=== PATIENT | female | born 1995 | race Caucasian/White ===

== ENCOUNTER 2019-08-31 16:54 | Emergency (ER) | payer SELFPAY ==
--- NOTE | 2019-08-31 16:59 | ED_ITS ---
I attest that this documentation has been prepared under the direction and in the presence of Pola Valdez Scribe 08/31/19;17:08 HPI - Skin/Abscess/Foreign Bdy General Chief complaint: Skin/Abscess/Foreign Body Stated complaint: rash on hands Time Seen by Provider: 08/31/19 17:15 Source: patient and RN notes reviewed Mode of arrival: ambulatory Limitations: no limitations History of Present Illness HPI narrative: A 24 y/o female presents to the with a itchy, red, pruritic, rash to her SHANTEL hands for the past 11 days. 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 She reports that she has tried hydrocortisone and triple abx cream but denies either helping. She notes that the only new thing she has been exposed to is bleach. She denies any fevers, vomiting, SOB, and any other medical complaints at this time. MD complaint: rash Onset (ago): day(s) (11) Location: L hand and R hand Quality: pruritic Context: other (bleach) Associated symptoms: itching Treatments prior to arrival: other (hydrocortisone and triple abx cream) Related Data Allergies Allergy/AdvReac Type Severity Reaction Status Date / Time No Known Allergies Allergy Verified 08/31/19 17:09 Review of Systems Review of Systems: Narrative: General/Constitutional: No weight loss,fever Eyes: N0: Redness,discharge Respiratory: Denies: Hemoptysis or SOB Gastrointestinal: No Vomiting, Bleeding-rectal Skin: No Lumps, eruption. Reports a tchy, red, pruritic, rash to her SHANTEL hands. Hematologic: Denies: Petechiae/Purpura PMFSH Past Medical History Medical History (Updated 09/01/19 @ 00:00 by Isabela Chavez) Healthy female Surgical History Surgical History (Updated 08/31/19 @ 17:24 by Pola Dahl) No history of previous surgery Social History Social History (Updated 08/31/19 @ 17:27 by Pola Dahl) Smoking status: Unknown if ever smoked Exam Narrative: Exam Narrative: General Appearance: Well-nourished/obese, normocephalic, Conjunctiva clear Throat/neck: Normal appearing,supple Respiratory: Airway patent, No respiratory distress Musculoskeletal: Moves all extremities, Non tender Skin: Warm, Dry ; pink, raised, maculopapular eruption extensor surface of hands, in a glove distribution Neurological: A&O x3 Normal affect Course Vital Signs Vital signs: Vital Signs Temperature 97.4 F L 08/31/19 17:07 Pulse Rate 72 08/31/19 17:07 Respiratory Rate 08/31/19 17:07 Blood Pressure 122/72 08/31/19 17:07 Pulse Oximetry 100 08/31/19 17:07 Temperature 97.4 F L 08/31/19 17:07 Pulse Rate 72 08/31/19 17:07 Respiratory Rate 08/31/19 17:07 Blood Pressure 122/72 08/31/19 17:07 Pulse Oximetry 100 08/31/19 17:07 Discharge Plan Discharge Clinical Impression: Hand dermatitis Patient Disposition: Home, Self-Care Condition: Stable Additional Instructions: Try using different, permeable gloves; avoid highly concentrated cleaning solutions Prescriptions: New methylprednisolone [Medrol (Suleiman)] 4 mg tablets,dose pack See Rx Instructions .ROUTE .COMPLEX Qty: 21 RF: 0 loratadine [Claritin] 10 mg tablet 10 mg PO DAILY PRN (Reason: allergy symptoms) Qty: 10 RF: 0 Follow-up/Referrals: [facility]
[2019-08-31 17:07] VITALS: BP 122/72; PULSE 72; RESP 20; TEMP 36.3; O2SAT 100
== END 2019-08-31 17:38 | disposition home or self-care (01) ==
PROVIDERS: Emergency Provider Emergency Medicine
DX: L30.9 Dermatitis, unspecified (principal)
CPT/HCPCS: 99203; G0463

== ENCOUNTER 2020-09-11 10:05 | Outpatient (CLI) | payer OTHER, SELFPAY ==
--- NOTE | ~2020-09-11 | US_ITS ---
EXAMINATION: US OB follow up DATE: 09/11/2020 12:47 INDICATION: Third trimester. TECHNIQUE: Real-time ultrasound of the pelvis was performed. COMPARISON: None. FINDINGS: There is a single living fetus in vertex presentation. The placenta is fundal. heart rate is 1 31 beats per minute (bpm). The amniotic fluid index is 5.5 cm, which is low (5th percentile is 8.6 cm ). The following biometric data were obtained: Biparietal diameter (BPD): 8.1 cm; head circumference (HC): 30.6 cm; abdominal circumference (AC): 28 .0 cm; femur length (FL): 6.3 cm. These measurements are concordant. Estimated weight is 1969 g +/- 295 g, which correlates with 57th percentile when 11/07/20 is use d as estimated date of delivery. As single measurements, these parameters are each equal to the following estimated gestational ages: BPD: 32 weeks 3 days. HC: 34 weeks 0 days. AC: 32 weeks 0 days. FL: 32 weeks 4 days. estimated gestational age based solely on measurements from this exam is 32 weeks 5 days +/- 2 weeks 2 days. IMPRESSION: 1. Single living fetus in vertex presentation. 2. Estimated weight is 1969 g +/- 295 g, which correlates with 57th percentile when 11/07/20 is used as estimated date of delivery. 3. Oligohydramnios. Reviewed, dictated and finalized at location A. MANAGER IMPRESSION: 1. Single living fetus in vertex presentation. 2. Estimated weight is 1969 g +/- 295 g, which correlates with 57th perc entile when 11/07/20 is used as estimated date of delivery. 3. Oligohydramnios.
== END 2020-09-11 10:06 | disposition home or self-care (01) ==
LOC: ANHIMG 10:08
PROVIDERS: Visit Provider Obstetrics & Gynecology
DX: Z36.89 Encounter for other specified antenatal screening (principal); O41.03X0 Oligohydramnios, third trimester, not applicable or unspecified; Z3A.00 Weeks of gestation of pregnancy not specified
CPT/HCPCS: 76816

== ENCOUNTER 2020-11-03 14:29 | Outpatient (CLI) | payer OTHER, SELFPAY ==
[2020-11-03] VITALS (8 sets, daily range): BP systolic 129–144; BP diastolic 90–102; PULSE 67–81
[2020-11-03] MEDS: LABETALOL HCL 100 MG TABLET PO (16:41)
[2020-11-03 16:52] LABS: Basophils Percent Auto 0.2 % (0.2-1.2); Eosinophils Absolute Auto 0.1 K/mm3 (0-0.3); Eosinophils Percent Auto 1.4 % (0-4.4); Hematocrit 39.9 % (37.0-47.0); Hemoglobin 12.3 g/dL (12.0-15.0); Immature Granulocyte Absolute 0.04 K/mm3 (0.00-0.031); Immature Granulocyte Percent A 0.5 % (0-0.5); Immature Platelet Fraction Pct 19.1 % (0.9-11.2); Lymphocytes Absolute Auto 1.94 K/mm3 (0.9-3.2); Lymphocytes Percent Auto 22.2 % (18.3-44.2); Mean Corpuscular HGB Conc 30.8 g/dl (32-36); Mean Corpuscular Hemoglobin 25.1 pg (26-34); Mean Corpuscular Volume 81.4 fl (80-100); Monocytes Absolute Auto 0.4 K/mm3 (0.1-0.6); Monocytes Percent Auto 4.9 % (2.6-8.5); Neutrophils Absolute Auto 6.2 K/mm3 (1.3-6.7); Neutrophils Percent Auto 70.8 % (45.5-73.1); Platelet Count Result 187 k/mm3 (150-375); Red Cell Distribution Width 16.8 % (11.5-14.5); White Blood Count 8.7 K/mm3 (4.5-10.0)
[2020-11-03 17:00] LABS: Alanine Aminotransferase 30 U/L (4-35); Albumin Level 3.6 g/dL (3.5-5.1); Alkaline Phosphatase 165 U/L (38-126); Anion Gap 5 mmol/L (8-16); Aspartate Amino Transferase 29 U/L (14-36); Bilirubin,Total 0.3 mg/dL (0.2-1.3); Blood Urea Nitrogen 10 mg/dL (7-17); Calcium 9.2 mg/dL (8.4-10.2); Carbon Dioxide 23 mmol/L (22-30); Chloride 108 mmol/L (98-107); Estimated Glomerular Filt Rate > 60; Glucose 88 mg/dL (65-105); Potassium 4.4 mmol/L (3.4-5.0); Sodium 136 mmol/L (137-145); Uric Acid 6.4 mg/dL (2.5-7.5)
[2020-11-03 17:20] LABS: Add Urine Microscopic? YES; Appearance Urine Cloudy (Clear); Bilirubin Urine Negative (Negative); Blood Urine 1+ (Negative); Color Urine Yellow (Yellow); Glucose Urine UA Negative (Negative); Ketones Urine Negative (Negative); Leukocyte Esterase Ur Trace LEU/UL (NEGATIVE); Mucus Urine Rare /lpf; Nitrate Urine Negative (Negative); Protein Urine 1+ mg/dL (Negative); RBC Urine 0-2 /hpf (0-2); Specific Grav Ur 1.014 (1.001-1.035); Squamous Epithelial Cell Urine Moderate /hpf (Few); Transitional Epi Cells Urine Rare /hpf (None Seen); Urobilinogen Urine Negative mg/dL (<2.0); WBC Urine 0-3 /hpf (0-3)
[2020-11-03 17:25] LABS: Creatinine Urine 109.5 mg/dL; Total Protein Urine Random 22 mg/dL
== END 2020-11-03 18:30 | disposition home or self-care (01) ==
LOC: ANHOBOP 16:16 → ANHLDR 16:18
PROVIDERS: Visit Provider Obstetrics & Gynecology
DX: Z36.89 Encounter for other specified antenatal screening (principal)
CPT/HCPCS: 36415; 59025; 80053; 81001; 82570; 84156; 84550; 85025; 85055; 87086; 87088; 99199; A9270

== ENCOUNTER 2020-11-06 05:54 | Inpatient (IN) | payer OTHER, SELFPAY ==
[2020-11-06] VITALS (227 sets, daily range): BP systolic 82–155; BP diastolic 59–113; PULSE 25–100; RESP 18; TEMP 35.9–36.8; O2SAT 86–100; BMI 47.1
--- NOTE | 2020-11-06 06:21 | WPDANESEPP ---
Anes - Eval Pre Procedure Procedure: labor epidural Date/Time: 11/06/20 06:21 Surgeon: erma neumann Pre Op Diagnosis: Induction of Labor Patient Data Age: 25 Gender: F Height: Weight: Allergies Allergy/AdvReac Type Severity Reaction Status Date / Time nickel Allergy Swelling Verified 10/11/20 12:41 SUGAR Allergy Rash Uncoded 10/11/20 12:41 Home Medications Medication Instructions Recorded Confirmed Type labetalol 100 mg PO Q12H 10/11/20 10/11/20 History prenat.vits,binu,[id number] 1 tablet PO DAILY 10/11/20 10/11/20 History [ #2] Patient hx anesthesia problems: none Family hx anesthesia problems: none PMFSH Past Medical History Medical History (Updated 11/06/20 @ 06:22 by Nelly Hanna CRNA) Anxiety Healthy female Surgical History Surgical History (Updated 08/31/19 @ 17:24 by Pola Dahl) No history of previous surgery Family History Family History (Updated 10/11/20 @ 12:45 by Thelma Dow RN) Mother Heart murmur Depression PTSD (post-traumatic stress disorder) Social History Social History (Updated 08/31/19 @ 17:27 by Pola Dahl) Smoking status: Unknown if ever smoked Substance use: never Spiritual care concerns: No Exam Day of Procedure 11/06/20 06:21
[2020-11-06] MEDS: LACTATED RINGERS 1,000 ML 125 ML IV CONT ×3 (06:39→18:35)
--- NOTE | 2020-11-06 06:52 | PM.IMHP ---
H&P: HPI History of Present Illness Date/Time: whose EDC is 11/07/2020 confirmed by 9 week ultrasound presents for induction of labor. She has chronic hypertension on labetalol 100 mg b.i.d.. The has been otherwise uncomplicated. She is negative for group B strep. Chief Complaint: iol Review of Systems Review of Systems: All systems reviewed & are unremarkable except as noted in HPI and below PMFSH Past Medical History Medical History Anxiety Healthy female Surgical History Surgical History No history of previous surgery Family History Family History Mother Heart murmur Depression PTSD (post-traumatic stress disorder) Social History Social History Smoking status: Unknown if ever smoked Substance use: never Spiritual care concerns: No Meds Home Medications and Allergies Home Medications Medication Instructions Recorded Confirmed Type labetalol 100 mg PO Q12H 10/11/20 10/11/20 History prenat.vits,binu,[id number] 1 tablet PO DAILY 10/11/20 10/11/20 History [ #2] Allergies Allergy/AdvReac Type Severity Reaction Status Date / Time nickel Allergy Swelling Verified 10/11/20 12:41 SUGAR Allergy Rash Uncoded 10/11/20 12:41 Vital Signs Vital Signs - 24 hr 11/06/20 06:30 11/06/20 06:45 Pulse Rate 73 81 Blood Pressure 124/90 122/90 Exam Const: General: no acute distress Eyes: General: appearance normal, both eyes and all related structures Neck: Neck: supple and no JVD Thyroid: thyroid normal Resp: Effort & Inspection: normal respiratory effort Auscultation: clear to auscultation bilaterally Cardio: Rate: regular rate Rhythm: regular rhythm GI: Inspection: non-distended GI Palp: Yes Soft to palpation, No Tenderness to palpation present (GI) and No Guarding due to palpation present (GI) Auscultation: normal bowel sounds : External Female Exam: normal external appearance Speculum Exam - Vagina: normal appearance of the vagina Speculum Exam - Cervix: normal appearance of the cervix ( Cervix 3/75/ -1. AROM clear. FHTs reassuring) Skin: General skin exam: no rashes or lesions noted Extrem: General: normal to inspection and no edema Psych: Mental Status: mental status grossly normal Affect: normal affect Assessment and Plan Additional Plan impression: Term with chronic hypertension and favorable cervix Plan: Medical induction of labor. Spontaneous vaginal delivery is expected. She has an epidural candidate
--- NOTE | 2020-11-06 06:53 | LDADM ---
This patient, Arianna Mercedes, was admitted to Labor/Delivery/Recovery 107 on 11/06/20 at 05:54. Plans for labor, pain management and were discussed with patient. Patient/family oriented to hospital policies and general routines including ID bracelet, bed and alarms, visiting hours, pain management, procedures, bathroom and other care routines, personal items, smoking policy, room service/diet and guest tray routines, infant security routines, and visiting hours. Patient/Family are encouraged to report perceived risks to care and to ask questions if they do not understand what they are told or what they should do. See OBIX for further documentation.
[2020-11-06] MEDS: OXYTOCIN 30 UNITS/NS 500 ML 30 UNITS/500 ML BAG 6 UNITS IV CONT (07:01)
[2020-11-06 07:02] LABS: Alanine Aminotransferase 31 U/L (4-35); Albumin Level 3.6 g/dL (3.5-5.1); Alkaline Phosphatase 166 U/L (38-126); Anion Gap 8 mmol/L (8-16); Aspartate Amino Transferase 31 U/L (14-36); Bilirubin,Total 0.5 mg/dL (0.2-1.3); Blood Urea Nitrogen 9 mg/dL (7-17); Calcium 9.1 mg/dL (8.4-10.2); Carbon Dioxide 19 mmol/L (22-30); Chloride 109 mmol/L (98-107); Estimated Glomerular Filt Rate > 60; Glucose 96 mg/dL (65-105); Potassium 4.1 mmol/L (3.4-5.0); Sodium 136 mmol/L (137-145); Uric Acid 5.6 mg/dL (2.5-7.5)
[2020-11-06 07:11] LABS: Basophils Percent Auto 0.2 % (0.2-1.2); Eosinophils Absolute Auto 0.1 K/mm3 (0-0.3); Eosinophils Percent Auto 1.4 % (0-4.4); Hematocrit 37.8 % (37.0-47.0); Hemoglobin 11.6 g/dL (12.0-15.0); Immature Granulocyte Absolute 0.04 K/mm3 (0.00-0.031); Immature Granulocyte Percent A 0.4 % (0-0.5); Immature Platelet Fraction Pct 20.8 % (0.9-11.2); Lymphocytes Absolute Auto 2.01 K/mm3 (0.9-3.2); Lymphocytes Percent Auto 21.8 % (18.3-44.2); Mean Corpuscular HGB Conc 30.7 g/dl (32-36); Mean Corpuscular Hemoglobin 24.9 pg (26-34); Mean Corpuscular Volume 81.3 fl (80-100); Monocytes Absolute Auto 0.5 K/mm3 (0.1-0.6); Monocytes Percent Auto 5.2 % (2.6-8.5); Neutrophils Absolute Auto 6.6 K/mm3 (1.3-6.7); Platelet Count Result 172 k/mm3 (150-375); Red Blood Count 4.65 M/mm3 (4.2-5.4); White Blood Count 9.2 K/mm3 (4.5-10.0)
--- NOTE | 2020-11-06 08:41 | WPDANESEPP ---
Anes - Eval Pre Procedure Procedure: Labor Epidural Date/Time: 11/06/20 08:41 Pre Op Diagnosis: Induction of Labor Patient Data Age: 25 Gender: F Height: 1.63 m Weight: 124.6 kg Last Vital Signs Temp 36.1 C L 11/06/20 06:52 Pulse 76 11/06/20 08:30 BP 155/113 H 11/06/20 08:30 Allergies Allergy/AdvReac Type Severity Reaction Status Date / Time nickel Allergy Swelling Verified 10/11/20 12:41 SUGAR Allergy Rash Uncoded 10/11/20 12:41 Home Medications Medication Instructions Recorded Confirmed Type labetalol 100 mg PO Q12H 10/11/20 10/11/20 History prenat.vits,binu,mda-qhug-[id number] 1 tablet PO DAILY 10/11/20 10/11/20 History [ #2] ondansetron HCl 4 mg PO Q6H PRN 11/06/20 11/06/20 History Laboratory Tests 11/06/20 11/06/20 11/06/20 06:44 06:44 06:44 WBC 9.2 K/mm3 K/mm3 (4.5-10.0) RBC 4.65 M/mm3 M/mm3 (4.2-5.4) Hgb 11.6 g/dL L g/dL (12.0-15.0) Hct 37.8 % % (37.0-47.0) MCV 81.3 fl fl (80-100) MCH 24.9 pg L pg (26-34) MCHC 30.7 g/dl L g/dl (32-36) RDW 17.0 % H % (11.5-14.5) Plt Count 172 k/mm3 k/mm3 (150-375) MPV TNP Immature Gran % (Auto) 0.4 % % (0-0.5) Neut % (Auto) 71.0 % % (45.5-73.1) Lymph % (Auto) 21.8 % % (18.3-44.2) Emanuel % (Auto) 5.2 % % (2.6-8.5) Eos % (Auto) 1.4 % % (0-4.4) Baso % (Auto) 0.2 % % (0.2-1.2) Lymph # (Auto) 2.01 K/mm3 K/mm3 (0.9-3.2) Emanuel # (Auto) 0.5 K/mm3 K/mm3 (0.1-0.6) Eos # (Auto) 0.1 K/mm3 K/mm3 (0-0.3) Baso # (Auto) 0.0 K/mm3 K/mm3 (0.0-0.1) Abs Immat Gran (auto) 0.04 K/mm3 H K/mm3 (0.00-0.031) Absolute Neuts (auto) 6.6 K/mm3 K/mm3 (1.3-6.7) Absolute Nucleated RBC 0.0 K/mm3 K/mm3 (0.0-0.012) Nucleated RBC % 0.0 % % (0.0-0.2) % Immature Plt Fraction 20.8 % H % (0.9-11.2) Sodium Potassium Chloride Carbon Dioxide Anion Gap BUN Creatinine Estim Creat Clear Calc Estimated GFR Glucose Uric Acid Cancelled Calcium Total Bilirubin AST ALT Alkaline Phosphatase Total Protein Albumin RPR Pending Blood Type Antibody Screen 11/06/20 11/06/20 06:44 06:44 WBC RBC Hgb Hct MCV MCH MCHC RDW Plt Count MPV Immature Gran % (Auto) Neut % (Auto) Lymph % (Auto) Emanuel % (Auto) Eos % (Auto) Baso % (Auto) Lymph # (Auto) Emanuel # (Auto) Eos # (Auto) Baso # (Auto) Abs Immat Gran (auto) Absolute Neuts (auto) Absolute Nucleated RBC Nucleated RBC % % Immature Plt Fraction Sodium 136 mmol/L L mmol/L (137-145) Potassium 4.1 mmol/L mmol/L (3.4-5.0) Chloride 109 mmol/L H mmol/L (98-107) Carbon Dioxide 19 mmol/L L mmol/L (22-30) Anion Gap 8 mmol/L mmol/L (8-16) BUN 9 mg/dL mg/dL (7-17) Creatinine 0.70 mg/dL mg/dL (0.7-1.0) Estim Creat Clear Calc Not Reportable Estimated GFR > 60 (59 - ) Glucose 96 mg/dL mg/dL (65-105) Uric Acid 5.6 mg/dL mg/dL (2.5-7.5) Calcium 9.1 mg/dL mg/dL (8.4-10.2) Total Bilirubin 0.5 mg/dL mg/dL (0.2-1.3) AST 31 U/L U/L (14-36) ALT 31 U/L U/L (4-35) Alkaline Phosphatase 166 U/L H U/L (38-126) Total Protein 7.0 g/dL g/dL (6.3-8.2) Albumin 3.6 g/dL g/dL (3.5-5.1) RPR Blood Type A Positive Antibody Screen Negati
--- NOTE | 2020-11-06 11:26 | PM.OBPNVD ---
OB - PN: Subj Subjective Date/time seen: 11/06/20 11:26 cx 4 by rn exam fhts ok OB - PN: Obj Data Labs CBC & Chem 7: 11/06/20 06:44 11/06/20 06:44 Labs: Laboratory Results - last 24 hr 11/06/20 11/06/20 11/06/20 06:44 06:44 06:44 WBC 9.2 RBC 4.65 Hgb 11.6 L Hct 37.8 MCV 81.3 MCH 24.9 L MCHC 30.7 L RDW 17.0 H Plt Count 172 MPV TNP Immature Gran % (Auto) 0.4 Neut % (Auto) 71.0 Lymph % (Auto) 21.8 Greene % (Auto) 5.2 Eos % (Auto) 1.4 Baso % (Auto) 0.2 Lymph # (Auto) 2.01 Greene # (Auto) 0.5 Eos # (Auto) 0.1 Baso # (Auto) 0.0 Abs Immat Gran (auto) 0.04 H Absolute Neuts (auto) 6.6 Absolute Nucleated RBC 0.0 Nucleated RBC % 0.0 % Immature Plt Fraction 20.8 H Sodium Potassium Chloride Carbon Dioxide Anion Gap BUN Creatinine Estim Creat Clear Calc Estimated GFR Glucose Uric Acid Cancelled Calcium Total Bilirubin AST ALT Alkaline Phosphatase Total Protein Albumin Blood Type A Positive Antibody Screen Negative 11/06/20 06:44 WBC RBC Hgb Hct MCV MCH MCHC RDW Plt Count MPV Immature Gran % (Auto) Neut % (Auto) Lymph % (Auto) Greene % (Auto) Eos % (Auto) Baso % (Auto) Lymph # (Auto) Greene # (Auto) Eos # (Auto) Baso # (Auto) Abs Immat Gran (auto) Absolute Neuts (auto) Absolute Nucleated RBC Nucleated RBC % % Immature Plt Fraction Sodium 136 L Potassium 4.1 Chloride 109 H Carbon Dioxide 19 L Anion Gap 8 BUN 9 Creatinine 0.70 Estim Creat Clear Calc Not Reportable Estimated GFR > 60 Glucose 96 Uric Acid 5.6 Calcium 9.1 Total Bilirubin 0.5 AST 31 ALT 31 Alkaline Phosphatase 166 H Total Protein 7.0 Albumin 3.6 Blood Type Antibody Screen OB - PN A/P Time Spent With Patient Time: Total time spent is greater than 50% in coordination of care (as documented) at patient's floor/unit and/or counseling patient:
--- NOTE | 2020-11-06 17:52 | P.PNOB_ITS ---
OB - PN: Subj Subjective Date/time seen: 11/06/20 17:52 cx 7 by rn exam iupc in/adjusting pit fhts ok OB - PN: Obj Data Labs CBC & Chem 7: 11/06/20 06:44 11/06/20 06:44 Labs: Laboratory Results - last 24 hr 11/06/20 11/06/20 11/06/20 06:44 06:44 06:44 WBC 9.2 RBC 4.65 Hgb 11.6 L Hct 37.8 MCV 81.3 MCH 24.9 L MCHC 30.7 L RDW 17.0 H Plt Count 172 MPV TNP Immature Gran % (Auto) 0.4 Neut % (Auto) 71.0 Lymph % (Auto) 21.8 Meriwether % (Auto) 5.2 Eos % (Auto) 1.4 Baso % (Auto) 0.2 Lymph # (Auto) 2.01 [place]ether # (Auto) 0.5 Eos # (Auto) 0.1 Baso # (Auto) 0.0 Abs Immat Gran (auto) 0.04 H Absolute Neuts (auto) 6.6 Absolute Nucleated RBC 0.0 Nucleated RBC % 0.0 % Immature Plt Fraction 20.8 H Sodium Potassium Chloride Carbon Dioxide Anion Gap BUN Creatinine Estim Creat Clear Calc Estimated GFR Glucose Uric Acid Cancelled Calcium Total Bilirubin AST ALT Alkaline Phosphatase Total Protein Albumin Blood Type A Positive Antibody Screen Negative 11/06/20 06:44 WBC RBC Hgb Hct MCV MCH MCHC RDW Plt Count MPV Immature Gran % (Auto) Neut % (Auto) Lymph % (Auto) [place]ether % (Auto) Eos % (Auto) Baso % (Auto) Lymph # (Auto) Meriwether # (Auto) Eos # (Auto) Baso # (Auto) Abs Immat Gran (auto) Absolute Neuts (auto) Absolute Nucleated RBC Nucleated RBC % % Immature Plt Fraction Sodium 136 L Potassium 4.1 Chloride 109 H Carbon Dioxide 19 L Anion Gap 8 BUN 9 Creatinine 0.70 Estim Creat Clear Calc Not Reportable Estimated GFR > 60 Glucose 96 Uric Acid 5.6 Calcium 9.1 Total Bilirubin 0.5 AST 31 ALT 31 Alkaline Phosphatase 166 H Total Protein 7.0 Albumin 3.6 Blood Type Antibody Screen OB - PN A/P Time Spent With Patient Time: Total time spent is greater than 50% in coordination of care (as documented) at patient's floor/unit and/or counseling patient:
[2020-11-07] VITALS (161 sets, daily range): BP systolic 101–158; BP diastolic 54–99; PULSE 65–120; RESP 18; TEMP 36.4–37.2; O2SAT 91–100
[2020-11-07] MEDS: SODIUM CHLORIDE 0.9% IV 300 ML 600 ML I-UTERINE (00:01)
[2020-11-07] MEDS: OXYTOCIN 30 UNITS/NS 500 ML 30 UNITS/500 ML BAG 6 UNITS IV CONT ×2 (00:10→09:43)
[2020-11-07] MEDS: AMPICILLIN 2 GM/NS 100 ML 2 GM/100 ML BAG IVPB (00:57)
[2020-11-07] MEDS: LACTATED RINGERS 1,000 ML 125 ML IV CONT (03:11)
[2020-11-07] MEDS: AMPICILLIN 1 GM/NS 50 ML 1 GM/50 ML BAG IVPB (04:54)
--- NOTE | 2020-11-07 07:43 | PM.OBPNVD ---
OB - PN: Subj Subjective Date/time seen: 11/07/20 07:43 complete/pushing fhts ok OB - PN: Obj Data Labs CBC & Chem 7: 11/06/20 06:44 11/06/20 06:44 Labs: Laboratory Results - last 24 hr 11/06/20 06:44 Blood Type A Positive Antibody Screen Negative OB - PN A/P Time Spent With Patient Time: Total time spent is greater than 50% in coordination of care (as documented) at patient's floor/unit and/or counseling patient:
--- NOTE | 2020-11-07 09:25 | PM.OBPRVD ---
OB - Delivery Note Procedure Delivery date: 11/07/20 Intrapartal events: None Induction method: AROM Delivery augmentation: pitocin Delivery monitor: external FHT Episiotomy description: None Laceration Description: None Specimen: No Quantitative Blood Loss (ml): 58 Anesthesia type: Epidural Disposition: floor Baby Date of : 11/07/20 Time of : 09:17 Weeks of gestation at delivery: 39 Infant gender: Male presentation: vertex position: Right Occiput Anterior Placenta delivery description: Spontaneous cord vessel description: 3 Vessels and Nuchal Cord
[2020-11-07] MEDS: OXYTOCIN 30 UNITS/NS 500 ML 30 UNITS/500 ML BAG 125 UNITS IV CONT (10:12)
[2020-11-07] MEDS: IBUPROFEN 600 MG TABLET PO (11:21)
[2020-11-07 13:25] LABS: Rapid Plasma Reagin Non-Reactive (NonReactive)
--- NOTE | 2020-11-07 15:15 | PC.NURSE ---
Consult with pt. to discuss initiation of pumping due to transfer. Mother states she was planing on . Reviewed stimulation and milk supply. Breast pump provided due to transfer. Instructions given on breast pump care and usage, pumping schedule, nipple care, and collection and storage of breast milk. Encouraged breast massage and manual expression to stimulate supply. Assessed patient for correct flange size, placement and draw. Patient verbalizes and demonstrates understanding of instructions.
[2020-11-08] VITALS: BP 119/78; PULSE 67; RESP 16; TEMP 36.7
[2020-11-08 04:30] VITALS: BP 141/100; PULSE 72; RESP 16; TEMP 36.6
[2020-11-08 06:05] LABS: Hematocrit 33.2 % (37.0-47.0); Hemoglobin 10.1 g/dL (12.0-15.0)
--- NOTE | 2020-11-08 07:43 | PM.OBPNVD ---
OB - PN: Subj Subjective Date/time seen: 11/08/20 07:43 Patient comments: no complaints and pain well controlled OB - PN: Obj Data Labs CBC & Chem 7: 11/08/20 04:56 11/06/20 06:44 Labs: Laboratory Results - last 24 hr 11/06/20 11/08/20 06:44 04:56 Hgb 10.1 L Hct 33.2 L RPR Non-reactive OB - PN A/P Plan day: 1 Plan: routine care, discharge home and follow up 6 weeks Time Spent With Patient Time: Total time spent is greater than 50% in coordination of care (as documented) at patient's floor/unit and/or counseling patient: Time with patient: less than 15 minutes Review of Systems Review of Systems: All systems reviewed & are unremarkable except as noted in HPI and below Exam Const: General: no acute distress Eyes: General: appearance normal, both eyes and all related structures Neck: Neck: supple and no JVD Thyroid: thyroid normal Resp: Effort & Inspection: normal respiratory effort Auscultation: clear to auscultation bilaterally Cardio: Rate: regular rate Rhythm: regular rhythm GI: Inspection: non-distended GI Palp: Yes Soft to palpation, No Tenderness to palpation present (GI) and No Guarding due to palpation present (GI) Auscultation: normal bowel sounds : General: Yes bladder normal to palpation External Female Exam: normal external appearance Speculum Exam - Vagina: normal vaginal discharge and No vaginal bleeding Speculum Exam - Cervix: nontender Bimanual exam- vagina & uterus: bladder normal to palpation and No Cervical tenderness present OB/external & speculum: No vaginal bleeding Skin: General skin exam: no rashes or lesions noted Extrem: General: normal to inspection and no edema Psych: Mental Status: mental status grossly normal Affect: normal affect
--- NOTE | 2020-11-08 07:43 | PM.DS ---
DS: Admitting Diagnosis Admitting Diagnosis Admitting Diagnosis: term gest htn DS: Summary Hospital Course Hospital Course: mil x 24 hrs. baby transferrred with mec aspiration. her course unremarkable Time Spent with Patient Time attestation: Total time spent providing and/or coordinating discharge services: Exam Const: General: no acute distress Eyes: General: appearance normal, both eyes and all related structures Neck: Neck: supple and no JVD Thyroid: thyroid normal Resp: Effort & Inspection: normal respiratory effort Auscultation: clear to auscultation bilaterally Cardio: Rate: regular rate Rhythm: regular rhythm GI: Inspection: non-distended GI Palp: Yes Soft to palpation, No Tenderness to palpation present (GI) and No Guarding due to palpation present (GI) Auscultation: normal bowel sounds : General: Yes bladder normal to palpation External Female Exam: normal external appearance Speculum Exam - Vagina: normal vaginal discharge and No vaginal bleeding Speculum Exam - Cervix: nontender Bimanual exam- vagina & uterus: bladder normal to palpation and No Cervical tenderness present OB/external & speculum: No vaginal bleeding Skin: General skin exam: no rashes or lesions noted Extrem: General: normal to inspection and no edema Psych: Mental Status: mental status grossly normal Affect: normal affect DS: Data Data Completed and Pending Labs on day of discharge: Labs from last 24 hours 11/08/20 11/06/20 04:56 06:44 Hgb 10.1 L Hct 33.2 L RPR Non-reactive Discharge Plan Discharge Attending physician on discharge: Aidan Sandra Consulting providers: John Turpin Jr. Discharging Clinician: Aidan Sandra Patient Disposition: Home, Self-Care Activity: may shower, no straining and pelvic rest Diet: heart healthy Wound Care Instructions: follow printed instructions Discharge Instructions: Education: Mom and Baby Guide Given to: Mother Follow-Up: Call your delivering provider's office for an appointment to be seen in: 6 Weeks BREAST CARE: * Wear a snug supportive bra. * For engorgement discomfort: Breast Feeding: * Apply warm moist washcloths * Express milk as needed to relieve engorgement * Wear loose clothing Bottle Feeding: * May apply ice packs * For sore nipples: * Identify correct latch-on * Apply warm moist washcloths before and after nursing * Air dry nipples after nursing * May apply Lansinoh cream to nipples EPISIOTOMY/PERINEAL CARE: * Until bleeding stops, use your anoop bottle after urinating * Change your pad frequently throughout the day * You may take sitz baths several times a day (fill your bathtub with warm water and soak for 20 minutes.) Do NOT bathe in the water * No tub baths until seen by your physician - You may shower ACTIVITY: * Rest as much as possible. * Do not exercise or lift anything heavier than 10 pounds for about 2 weeks * Avoid stairs or driving as much as possible. * Do not put anything into the vagina. No douching, tampons, or sexual activity until seen by physician. NOTIFY PHYSICIAN IF YOU HAVE ANY QUESTIONS OR IF ANY OF THE FOLLOWING SYMPTOMS OCCUR: * If your vaginal area becomes red, swollen, or more painful than what you have experienced in the hospital. * If your vaginal bleeding becomes foul smelling. * If your vaginal bleeding becomes more heavy than a period or if your bleeding changes from pink to bright red. However, you may pass an occasional walnut-sized clot once or twice for the first week . * If you experience a sharp, shooting pain in your calves. * If you discover a hard, reddened area on your breast or if you experience flu-like symptoms. DIET: * Eat regular, well-balanced meals. * Drink plenty of fluids daily. If , drink to thirst. Patient Instructions: An
[2020-11-08 08:05] VITALS: BP 141/81; PULSE 77; RESP 16; TEMP 36.2; O2SAT 97
--- NOTE | 2020-11-08 08:56 | WPDANLDPN2 ---
Anes-Prog Note L&D Date/Time: 11/08/20 08:56 Comfortable throughout: labor Neuraxial method: epidural Epidural/Spinal procedure site: clean & non-tender Neuro status: Neuro function grossly intact. Cardiovascular status: normal Respiratory status: normal Airway patency: baseline Mental status: baseline Post-Op hydration status: normal Vital Signs: Last Vital Signs Temp 36.6 C 11/08/20 04:30 Pulse 72 11/08/20 04:30 Resp 16 11/08/20 04:30 BP 141/100 H 11/08/20 04:30 Pulse Ox 98 11/07/20 16:04 Pain score (VAS): no c/o pain Post-procedural complaints: none Patient feedback: Patient satisfied with anesthetic care.
[2020-11-08] MEDS: DOCUSATE SODIUM 100 MG CAPSULE PO (09:11)
[2020-11-08] MEDS: IBUPROFEN 600 MG TABLET PO (09:11)
[2020-11-08 09:45] VITALS: PULSE 77; RESP 16; O2SAT 97
== END 2020-11-08 10:15 | disposition home or self-care (01) | DRG 560 ==
LOC: ANHLDR 06:00 → ANHOB2 11-07 12:16
PROVIDERS: Admitting Provider Obstetrics & Gynecology; Visit Provider Obstetrics & Gynecology
DX: O13.4 Gestational [pregnancy-induced] hypertension without significant proteinuria, complicating childbirth (principal); Z37.0 Single live birth; Z3A.40 40 weeks gestation of pregnancy; O36.8330 Maternal care for abnormalities of the fetal heart rate or rhythm, third trimester, not applicable or unspecified; O77.0 Labor and delivery complicated by meconium in amniotic fluid; O99.344 Other mental disorders complicating childbirth; F41.9 Anxiety disorder, unspecified; O99.214 Obesity complicating childbirth; E66.01 Morbid (severe) obesity due to excess calories; O69.81X0 Labor and delivery complicated by cord around neck, without compression, not applicable or unspecified; O42.92 Full-term premature rupture of membranes, unspecified as to length of time between rupture and onset of labor
CPT/HCPCS: 36415; 80053; 84550; 85014; 85018; 85025; 85055; 86592; 86850; 86900; 86901; A9270; J0290; J2590; J2795; J7030; J7120

== ENCOUNTER 2021-07-20 17:32 | Emergency (ER) | payer OTHER, SELFPAY ==
[2021-07-20 17:35] VITALS: BP 131/78; PULSE 98; RESP 18; TEMP 36.9; O2SAT 100
--- NOTE | 2021-07-20 19:09 | ED.DENTAL ---
HPI - Dental/Oral General Chief complaint: Dental/Oral Stated complaint: dental pain Time Seen by Provider: 07/20/21 18:51 History of Present Illness HPI Narrative: 26-year-old female presenting to the emergency department for evaluation of dental pain. Patient states over the last year she has had recurring dental pain. Patient states over the last 3 days the pain has become more frequent. Patient has been taking Tylenol and ibuprofen for this. Patient states p.o. is limited due to the level of pain. Patient did attempt to have follow-up with a dentist but was unable to afford the initial visit. Patient states she does have a return dental visit scheduled for Friday. Related Data Home Medications Medication Instructions Recorded Confirmed labetalol 100 mg PO Q12H 10/11/20 10/11/20 prenat.vits,binu,bob-ylzw-hwdup 1 tablet PO DAILY 10/11/20 10/11/20 ondansetron HCl 4 mg PO Q6H PRN 11/06/20 11/06/20 Allergies Allergy/AdvReac Type Severity Reaction Status Date / Time nickel Allergy Swelling Verified 07/20/21 19:34 SUGAR Allergy Rash Uncoded 10/11/20 12:41 Review of Systems Review of Systems: CONSTITUTIONAL: Denies fever, chills, or sweats. EYES: Denies visual changes, redness, or discharge. ENT: Denies rhinorrhea, congestion, sore throat, or otalgia. Left lower dental pain CARDIOVASCULAR: Denies chest pain, palpitations, or edema. RESPIRATORY: Denies cough or dyspnea. GASTROINTESTINAL: Denies abdominal pain, nausea, vomiting, or diarrhea. GENITOURINARY: Denies dysuria or hematuria. SKIN: Denies rash or itching. MUSCULOSKELETAL: Denies back pain, joint pain, or myalgia. NEUROLOGIC: Denies headache, numbness, or weakness. PSYCHIATRIC: Denies anxiety or depression. [facility] Past Medical History Medical History (Updated 07/20/21 @ 19:14 by Brady Cordoba MD) Anxiety Healthy female HTN in , chronic PTSD (post-traumatic stress disorder) Super obesity Surgical History Surgical History No history of previous surgery Family History Family History Mother Heart murmur Depression PTSD (post-traumatic stress disorder) Social History Social History Smoking status: Never smoker Substance use: never Spiritual care concerns: No Exam Narrative: APPEARANCE: Well appearing, no pain in distress, well-nourished. HEAD: normocephalic, atraumatic. EYES: PERRLA/EOMI, conjunctivae clear. NOSE: Normal no drainage THROAT: Pharynx clear, no exudate. Dental carry, no dental fracture, no trismus. Normal posterior pharynx NECK: Supple. No adenopathy, no masses. RESPIRATORY: Airway patent, respirations nonlabored. Clear to auscultation bilaterally, no rales, rhonchi, wheezing. CARDIOVASCULAR: Regular rate and rhythm without murmurs rubs or gallops. ABDOMINAL: Soft, nontender, nondistended, normal bowel sounds MUSCULOSKELETAL: Moves all extremities. Strength/ROM intact, No edema, No calf tenderness. NEURO: Alert. Cranial nerves II through XII intact. Good gait. Good coordination SKIN: Warm, dry. Normal Color PSYCHIATRIC: Normal affect/mood. Course Course Emergency Course: 26-year-old female presented to emergency department for evaluation of dental pain. Patient was started on antibiotics in the emergency department. Patient states that she does have follow-up with her dentist as scheduled for Friday. All questions and concerns were addressed. Physician was discharged to home Clinical impression was dental caries/dental pain Patient condition was stable at time of discharge from the emergency department. Vital Signs Vital signs: Vital Signs Temperature 98.5 F 07/20/21 17:35 Pulse Rate 98 07/20/21 17:35 Respiratory Rate 18 07/20/21 17:35 Blood Pressure 131/78 07/20/21 17:35 Pulse Oximetry 100 07/20/21 17:35
[2021-07-20] MEDS: AMOXICILLIN/CLAVULANATE K 875-125 MG TAB 1 TABLET PO (19:35)
[2021-07-20 19:43] VITALS: BP 127/75; PULSE 88; RESP 18; O2SAT 100
== END 2021-07-20 19:44 | disposition home or self-care (01) ==
PROVIDERS: Emergency Provider Emergency Medicine
DX: K02.9 Dental caries, unspecified (principal); F41.9 Anxiety disorder, unspecified; I10 Essential (primary) hypertension
CPT/HCPCS: 99283; A9270

== ENCOUNTER 2023-01-08 18:49 | Emergency (ER) | payer OTHER, SELFPAY ==
[2023-01-08 18:57] VITALS: BP 134/85; PULSE 98; RESP 16; TEMP 36; O2SAT 100
--- NOTE | 2023-01-08 19:12 | ED.URI ---
HPI - URI/Sore Throat General Chief Complaint: Upper Respiratory Infection Stated Complaint: Cough,Congestion Time Seen by Provider: 01/08/23 19:04 Source: patient and RN notes reviewed Mode of arrival: ambulatory Limitations: no limitations History of Present Illness HPI Narrative: Patient presents today with a 2 day history of cough, nasal congestion, and sinus pressure. Denies fever, shortness of breath, sore throat. Denies history of asthma. She is a nonsmoker. She has been taking Mucinex without much relief. Related Data Home Medications Medication Instructions Recorded Confirmed No Home Medications 01/08/23 01/08/23 Allergies Allergy/AdvReac Type Severity Reaction Status Date / Time nickel AdvReac Intermediate Swelling Verified 01/08/23 18:54 SUGAR AdvReac Mild Rash Uncoded 01/08/23 18:54 Review of Systems Review of Systems: CONSTITUTIONAL: Denies body aches, fever, chills, or sweats. EYES: Denies visual changes, redness, or discharge. ENT: Denies rhinorrhea, sore throat, or otalgia.+ nasal congestion, sinus pressure CARDIOVASCULAR: Denies chest pain, palpitations, or edema. RESPIRATORY: Denies dyspnea.+ cough GASTROINTESTINAL: Denies abdominal pain, nausea, vomiting, or diarrhea. GENITOURINARY: Denies dysuria or hematuria. SKIN: Denies rash, itching, or wounds. MUSCULOSKELETAL: Denies back pain, joint pain, or myalgia. NEUROLOGIC: Denies headache, numbness, tingling, or weakness. PSYCH: Denies depression or anxiety. [facility] Past Medical History Medical History Anxiety Healthy female HTN in , chronic PTSD (post-traumatic stress disorder) Super obesity Surgical History Surgical History No history of previous surgery Family History Family History Mother Heart murmur Depression PTSD (post-traumatic stress disorder) Social History Social History Smoking status: Never smoker Substance use: never Spiritual care concerns: No Comments At time of signature, I have reviewed and agree with nursing past medical, surgical, social and family history unless otherwise noted. Please see nursing chart for further information. There is no relevant family history pertinent to the presenting complaint Exam Narrative: GENERAL: Well-appearing, well-nourished, and in no acute distress. HEAD: Normocephalic, atraumatic. EYES: EOMI. No redness or drainage. Conjunctivae normal. ENT: Mucous membranes pink and moist. Nares congested. No rhinorrhea. TMs normal bilaterally. Throat normal. Uvula midline. NECK: Normal AROM. Supple. No lymphadenopathy. CHEST: No respiratory distress. Clear to auscultation. HEART: Regular rate and rhythm. No murmur appreciated. Normal peripheral pulses. EXTREMITIES: Normal range of motion. No edema. SKIN: Warm, dry, no rash. Capillary refill normal. Normal skin turgor. NEURO: No focal deficits. Alert and oriented x3. Gait steady. PSYCH: Normal affect. No signs of depression or anxiety. Course Course Level of Care: Express Care Visit Vital Signs Vital signs: Vital Signs Temperature 96.8 F L 01/08/23 18:57 Pulse Rate 98 01/08/23 18:57 Respiratory Rate 16 01/08/23 18:57 Blood Pressure 134/85 01/08/23 18:57 Pulse Oximetry 100 01/08/23 18:57 Oxygen Delivery Room Air 01/08/23 18:57 Temperature 96.8 F L 01/08/23 18:57 Pulse Rate 98 01/08/23 18:57 Respiratory Rate 16 01/08/23 18:57 Blood Pressure 134/85 01/08/23 18:57 Pulse Oximetry 100 01/08/23 18:57 Oxygen Delivery Room Air 01/08/23 18:57 Reviewed. Pt has been instructed to follow up with her PCP regarding her elevated blood pressure today. MDM - URI/Sore Throat MDM Narrative Medical decision making narrative:
== END 2023-01-08 19:15 | disposition home or self-care (01) ==
PROVIDERS: Emergency Provider Nurse Practitioner
DX: J06.9 Acute upper respiratory infection, unspecified (principal); E66.01 Morbid (severe) obesity due to excess calories; Z68.42 Body mass index [BMI] 45.0-49.9, adult
CPT/HCPCS: 99213; G0463

== ENCOUNTER 2023-05-06 15:46 | Emergency (ER) | payer OTHER, SELFPAY ==
[2023-05-06 16:03] VITALS: BP 134/85; PULSE 106; RESP 14; TEMP 36.6; O2SAT 100
--- NOTE | 2023-05-06 16:14 | ED.GENADULT ---
HPI - General Adult General Chief complaint: Nausea/Vomiting/Diarrhea Stated complaint: nausea and vomiting - 20 weeks Time Seen by Provider: 05/06/23 17:13 History of Present Illness HPI narrative: Arianna Mercedes is a 28 y/o female who presents wt reports of nausea/vomiting/diarrhea that started yesterday. She states she has been around family wtih the same symptoms, and she felt nauseated yeseterday but was able to keep things down. Today she has vomited multiple times. She is also 20 weeks and saw her OB today. Denies fever/chills/abdominal pain/ vaginal beeding Related Data Allergies Allergy/AdvReac Type Severity Reaction Status Date / Time nickel AdvReac Intermediate Swelling Verified 05/06/23 15:47 SUGAR AdvReac Mild Rash Uncoded 05/06/23 15:47 PMFSH Past Medical History Medical History Anxiety Healthy female HTN in , chronic PTSD (post-traumatic stress disorder) Super obesity Surgical History Surgical History No history of previous surgery Family History Family History Mother Heart murmur Depression PTSD (post-traumatic stress disorder) Social History Social History Smoking status: Never smoker Substance use: never Spiritual care concerns: No Course Vital Signs Vital signs: Vital Signs Temperature 36.6 C 05/06/23 16:03 Pulse Rate 106 H 05/06/23 16:03 Respiratory Rate 14 05/06/23 16:03 Blood Pressure 134/85 05/06/23 16:03 Pulse Oximetry 100 05/06/23 16:03 Oxygen Delivery Room Air 05/06/23 16:03 Temperature 36.6 C 05/06/23 16:03 Pulse Rate 106 H 05/06/23 16:03 Respiratory Rate 14 05/06/23 16:03 Blood Pressure 134/85 05/06/23 16:03 Pulse Oximetry 100 05/06/23 16:03 Oxygen Delivery Room Air 05/06/23 16:03 Medical Decision Making MDM Narrative Medical decision making narrative: This was the MSE note, please see the alternate documentation Vital Signs Vital Signs: Vital Signs Temperature 36.6 C 05/06/23 16:03 Pulse Rate 106 H 05/06/23 16:03 Respiratory Rate 14 05/06/23 16:03 Blood Pressure 134/85 05/06/23 16:03 Pulse Oximetry 100 05/06/23 16:03 Oxygen Delivery Room Air 05/06/23 16:03 Temperature 36.6 C 05/06/23 16:03 Pulse Rate 106 H 05/06/23 16:03 Respiratory Rate 14 05/06/23 16:03 Blood Pressure 134/85 05/06/23 16:03 Pulse Oximetry 100 05/06/23 16:03 Oxygen Delivery Room Air 05/06/23 16:03 Lab Data 05/06/23 16:37 05/06/23 16:37 Labs: Lab Results 05/06/23 Range/Units 16:37 WBC 8.0 (4.5-10.0) K/mm3 RBC 5.07 (4.2-5.4) M/mm3 Hgb 12.8 (12.0-15.0) g/dL Hct 41.9 (37.0-47.0) % MCV 82.6 (80-100) fl MCH 25.2 L (26-34) pg MCHC 30.5 L (32-36) g/dl RDW 16.5 H (11.5-14.5) % Plt Count 183 (150-375) k/mm3 MPV 12.6 H (7.4-10.4) fl Immature Gran % (Auto) 0.3 (0-0.5) % Neut % (Auto) 78.5 H (45.5-73.1) % Lymph % (Auto) 13.2 L (18.3-44.2) % [place] % (Auto) 4.3 (2.6-8.5) % Eos % (Auto) 3.4 (0-4.4) % Baso % (Auto) 0.3 (0.2-1.2) % Lymph # (Auto) 1.05 (0.9-3.2) K/mm3 [place] # (Auto) 0.3 (0.1-0.6) K/mm3 Eos # (Auto) 0.3 (0-0.3) K/mm3 Baso # (Auto) 0.0 (0.0-0.1) K/mm3 Abs Immat Gran (auto) 0.02 (0.00-0.031) K/mm3 Absolute Neuts (auto) 6.3 (1.3-6.7) K/mm3 Absolute Nucleated RBC 0.0 (0.0-0.012) K/mm3 Nucleated RBC % 0.0 (0.0-0.2) % Sodium 133 L (137-145) mmol/L Potassium 3.9 (3.4-5.0) mmol/L Chloride 105 (98-107) mmol/L Carbon Dioxide 17 L (22-30) mmol/L Anion Gap 11 (8-16) mmol/L BUN 5 L (7-17) mg/dL Creatinine 0.40 L (0.7-1.0) mg/dL Estim Creat Clear Calc Not Reportable Estimated GFR > 60 (59 - ) Glucose 89 (65-110) mg/dL Calcium 9.1 (8.
[2023-05-06] MEDS: METOCLOPRAMIDE HCL INJ 10 MG/2 ML VIAL IV PUSH (16:37)
[2023-05-06] MEDS: SODIUM CHLORIDE 0.9% IV 1,000 ML 999 ML IV CONT ×3 (16:37→17:35)
[2023-05-06 16:48] LABS: Basophils Percent Auto 0.3 % (0.2-1.2); Eosinophils Absolute Auto 0.3 K/mm3 (0-0.3); Eosinophils Percent Auto 3.4 % (0-4.4); Hematocrit 41.9 % (37.0-47.0); Hemoglobin 12.8 g/dL (12.0-15.0); Immature Granulocyte Absolute 0.02 K/mm3 (0.00-0.031); Immature Granulocyte Percent A 0.3 % (0-0.5); Lymphocytes Absolute Auto 1.05 K/mm3 (0.9-3.2); Lymphocytes Percent Auto 13.2 % (18.3-44.2); Mean Corpuscular HGB Conc 30.5 g/dl (32-36); Mean Corpuscular Hemoglobin 25.2 pg (26-34); Mean Corpuscular Volume 82.6 fl (80-100); Mean Platelet Volume 12.6 fl (7.4-10.4); Monocytes Absolute Auto 0.3 K/mm3 (0.1-0.6); Monocytes Percent Auto 4.3 % (2.6-8.5); Neutrophils Absolute Auto 6.3 K/mm3 (1.3-6.7); Neutrophils Percent Auto 78.5 % (45.5-73.1); Platelet Count Result 183 k/mm3 (150-375); Red Blood Count 5.07 M/mm3 (4.2-5.4); Red Cell Distribution Width 16.5 % (11.5-14.5)
[2023-05-06 16:57] LABS: Appearance Urine Cloudy (Clear); Bacteria Urine 1+ /hpf; Bilirubin Urine Negative (Negative); Blood Urine Negative (Negative); Color Urine Yellow (Yellow); Glucose Urine UA Negative (Negative); Ketones Urine 2+ mg/dL (Negative); Leukocyte Esterase Ur 1+ LEU/UL (Negative); Nitrate Urine Negative (Negative); Non Pathogenic Casts 0-2; Protein Urine 1+ mg/dL (Negative); RBC Urine 0-2 /hpf (0-2); Specific Grav Ur 1.021 (1.001-1.035); Squamous Epithelial Cell Urine Moderate /hpf (Few); Urobilinogen Urine 0.2 mg/dL (<2.0); WBC Urine 21-50 /hpf; pH Urine 5.5 (5.0-9.0)
[2023-05-06 16:59] LABS: Anion Gap 11 mmol/L (8-16); Blood Urea Nitrogen 5 mg/dL (7-17); Calcium 9.1 mg/dL (8.4-10.2); Carbon Dioxide 17 mmol/L (22-30); Chloride 105 mmol/L (98-107); Estimated Glomerular Filt Rate > 60; Glucose 89 mg/dL (65-110); Potassium 3.9 mmol/L (3.4-5.0); Sodium 133 mmol/L (137-145)
[2023-05-06 17:07] LABS: Add Urine Microscopic? YES
--- NOTE | 2023-05-06 17:14 | ED.NAVMDI ---
HPI - Nausea/Vomiting/Diarrhea General Chief complaint: Nausea/Vomiting/Diarrhea Stated complaint: nausea and vomiting - 20 weeks Time Seen by Provider: 05/06/23 17:13 Source: patient Mode of arrival: ambulatory Limitations: no limitations History of Present Illness HPI Narrative: 28 years old white female, 2, para 1, abortions 0, 20 weeks came to the emergency room because of nausea and vomiting started today. 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 She denies any abdominal pain, vaginal bleeding or discharge. Does not smoke or drink, uses marijuana daily before going to sleep Related Data Allergies Allergy/AdvReac Type Severity Reaction Status Date / Time nickel AdvReac Intermediate Swelling Verified 05/06/23 15:47 SUGAR AdvReac Mild Rash Uncoded 05/06/23 15:47 Review of Systems Review of Systems: All systems reviewed & are unremarkable except as noted in HPI and below PMFSH Past Medical History Medical History Anxiety Healthy female HTN in , chronic PTSD (post-traumatic stress disorder) Super obesity Surgical History Surgical History No history of previous surgery Family History Family History Mother Heart murmur Depression PTSD (post-traumatic stress disorder) Social History Social History Smoking status: Never smoker Substance use: never Spiritual care concerns: No Exam Narrative: General appearance: Well-developed, well-nourished Skin: Normal color Head: Normocephalic, nontraumatic Eyes: Clear conjunctiva ENT: Oropharynx normal, ears normal, nose normal Neck: Supple, nontender Chest and respiratory: Airway patent, no respiratory distress, no accessory muscle use Heart: Regular rate/rhythm Abdomen: Soft, nontender, no organomegaly, quiet bowel sounds Vascular: Normal peripheral pulses, normal capillary refill. Musculoskeletal: Normal range of motion, nontender back Neurologic: Alert and oriented ?3, DIE WELDER is normal as tested, no gross motor deficit Course Reevaluation(s) Reevaluation #1: Remarkable improvement after IV fluid x2 L and Zofran IV. Patient is able to get fluid and crackers down prior to discharge. Date: 05/06/23 Time: 20:10 Vital Signs Vital signs: Vital Signs Temperature 36.6 C 05/06/23 16:03 Pulse Rate 106 H 05/06/23 16:03 Respiratory Rate 14 05/06/23 16:03 Blood Pressure 134/85 05/06/23 16:03 Pulse Oximetry 100 05/06/23 16:03 Oxygen Delivery Room Air 05/06/23 16:03 Temperature 36.6 C 05/06/23 16:03 Pulse Rate 106 H 05/06/23 16:03 Respiratory Rate 14 05/06/23 16:03 Blood Pressure 134/85 05/06/23 16:03 Pulse Oximetry 100 05/06/23 16:03 Oxygen Delivery Room Air 05/06/23 16:03 MDM - Nausea/Vomiting/Diarrhea MDM Narrative Medical decision making narrative: Patient presents with nausea and frequent vomiting. Vital signs on arrival unremarkable except tachycardia at 106 indicating possible dehydration Physical examination as above, Blood work-up today showed unremarkable finding, urine analysis showed 1+ leukocyte Estrace, up to 50 WBC. Urine infection is a possibility which could be coincidental finding with the gastroenteritis. Diagnosis gastroenteritis, urinary tract infection. In the ED patient received 2 L of normal saline, 1 g of ceftriaxone IV, 10 mg of Reglan IV. Patient was able to keep fluids and crackers down prior to discharge. Differential Diagnosis Diff
== END 2023-05-06 19:56 | disposition home or self-care (01) ==
PROVIDERS: Nurse Practitioner Family; Emergency Provider Emergency Medicine
DX: O99.612 Diseases of the digestive system complicating pregnancy, second trimester (principal); K52.9 Noninfective gastroenteritis and colitis, unspecified; O99.212 Obesity complicating pregnancy, second trimester; E66.01 Morbid (severe) obesity due to excess calories; Z3A.20 20 weeks gestation of pregnancy
CPT/HCPCS: 36415; 80048; 81001; 85025; 87086; 87088; 96361; 96365; 96375; 99284; J0696; J2765; J7030

== ENCOUNTER 2023-09-18 06:27 | Inpatient (IN) | payer OTHER, SELFPAY ==
[2023-09-18] VITALS (143 sets, daily range): BP systolic 88–147; BP diastolic 43–104; PULSE 55–240; RESP 18; TEMP 36.4–36.9; O2SAT 95–100; BMI 45.9
--- NOTE | 2023-09-18 06:33 | P.HP_ITS ---
H&P: HPI History of Present Illness Date/Time: 09/18/23 06:33 Chief Complaint: Elevated blood pressure term Narrative: 28-year-old 2 para 1 whose last menstrual period was 12/17/2022, EDC is 09/23/2023, presents at 39 weeks gestation for induction of labor secondary to elevated blood pressures. had been uncomplicated prior. PIH labs will be drawn. She is negative for group B strep PMFSH Past Medical History Medical History Anxiety Healthy female HTN in , chronic PTSD (post-traumatic stress disorder) Super obesity Surgical History Surgical History No history of previous surgery Family History Family History Mother Heart murmur Depression PTSD (post-traumatic stress disorder) Social History Social History Smoking status: Never smoker Substance use: never Spiritual care concerns: No Meds Home Medications and Allergies Home Medications Medication Instructions Recorded Confirmed Type amoxicillin 875 mg tablet 875 mg PO Q12H #20 tabs 05/06/23 Rx ondansetron 4 mg disintegrating 4 mg PO DAILY 3 days #3 tabs 05/06/23 Rx tablet Allergies Allergy/AdvReac Type Severity Reaction Status Date / Time nickel AdvReac Intermediate Swelling Verified 05/06/23 15:47 SUGAR AdvReac Mild Rash Uncoded 05/06/23 15:47 Exam Const: General: cooperative, healthy appearing and comfortable Orientation /consciousness: oriented to person, oriented to place and oriented to time HENMT: Head: normal to inspection Resp: Effort & Inspection: normal respiratory effort Cardio: Rate: regular rate Rhythm: regular rhythm Heart sounds: S1 normal heart sound present and S2 normal heart sound present GI: Inspection: normal to inspection ( gravid soft uterus) : External Female Exam: normal external appearance Speculum Exam - Vagina: normal appearance of the vagina Speculum Exam - Cervix: normal appearance of the cervix ( 50/ FHTs reassuring.) Assessment and Plan Assessment and plan (1) Term : Code(s): Z34.90 - Encounter for supervision of normal , unspecified, unspecified trimester Status: Acute (2) Gestational hypertension: Code(s): O13.9 - Gestational [-induced] hypertension without significant p roteinuria, unspecified trimester Status: Acute Plan medical induction of labor. Spontaneous vaginal delivery is expected. PIH labs will be drawn. She has an epidural candidate
[2023-09-18 07:24] LABS: Basophils Percent Auto 0.2 % (0.2-1.2); Eosinophils Absolute Auto 0.1 K/mm3 (0-0.3); Hematocrit 41.4 % (37.0-47.0); Hemoglobin 12.3 g/dL (12.0-15.0); Immature Granulocyte Absolute 0.03 K/mm3 (0.00-0.031); Immature Granulocyte Percent A 0.3 % (0-0.5); Immature Platelet Fraction Pct 21.8 % (0.9-11.2); Lymphocytes Absolute Auto 2.22 K/mm3 (0.9-3.2); Lymphocytes Percent Auto 19.4 % (18.3-44.2); Mean Corpuscular HGB Conc 29.7 g/dl (32-36); Mean Corpuscular Hemoglobin 23.8 pg (26-34); Mean Corpuscular Volume 80.1 fl (80-100); Monocytes Absolute Auto 0.6 K/mm3 (0.1-0.6); Neutrophils Absolute Auto 8.5 K/mm3 (1.3-6.7); Neutrophils Percent Auto 74.1 % (45.5-73.1); Platelet Count Result 186 k/mm3 (150-375); Red Blood Count 5.17 M/mm3 (4.2-5.4); Red Cell Distribution Width 18.2 % (11.5-14.5); White Blood Count 11.5 K/mm3 (4.5-10.0)
[2023-09-18] MEDS: LACTATED RINGERS 1,000 ML 125 ML IV CONT ×2 (07:31→12:14)
[2023-09-18 07:33] LABS: Alanine Aminotransferase 17 U/L (6-35); Albumin Level 4.3 g/dL (3.5-5.1); Alkaline Phosphatase 167 U/L (38-126); Anion Gap 11 mmol/L (8-16); Aspartate Amino Transferase 26 U/L (14-36); Bilirubin,Total 0.4 mg/dL (0.2-1.3); Blood Urea Nitrogen 16 mg/dL (7-17); Calcium 10.4 mg/dL (8.4-10.2); Carbon Dioxide 18 mmol/L (22-30); Chloride 108 mmol/L (98-107); Estimated Glomerular Filt Rate > 60; Glucose 91 mg/dL (65-110); Potassium 3.9 mmol/L (3.4-5.0); Sodium 137 mmol/L (137-145); Uric Acid 6.4 mg/dL (2.5-7.5)
[2023-09-18] MEDS: OXYTOCIN 30 UNITS/NS 500 ML 30 UNITS/500 ML BAG IV CONT (07:33)
--- NOTE | 2023-09-18 07:40 | LDADM ---
This patient, Arianna Mercedes, was admitted to Labor/Delivery/Recovery 105 on 09/18/23 at 06:27. Plans for labor, pain management and were discussed with patient. Patient/family oriented to hospital policies and general routines including ID bracelet, bed and alarms, visiting hours, pain management, procedures, bathroom and other care routines, personal items, smoking policy, room service/diet and guest tray routines, infant security routines, and visiting hours. Patient/Family are encouraged to report perceived risks to care and to ask questions if they do not understand what they are told or what they should do. See OBIX for further documentation.
[2023-09-18 07:47] LABS: Anisocytosis 1+ (NORMAL); Platelet Estimate Adequate (Adequate); Schistocytes None Seen (NORMAL)
[2023-09-18] MEDS: ONDANSETRON INJ 4 MG/2 ML VIAL IV PUSH (09:08)
--- NOTE | 2023-09-18 11:23 | PM.OBPNLAB ---
Pain Control Date/time seen: 09/18/23 11:23 Pain control: tolerating well Pelvic Exam Dilation (cm): 4 Effacement (%): 80 station: -2 Amniotic membrane status: Leaking Contractions Monitor mode: Internal
[2023-09-18 11:32] LABS: Amphetamine Screen Urine Negative (Negative); Barbiturate Screen Urine Negative (Negative); Benzodiazepines Screen Urine Negative (Negative); Cannabinoid Screen Urine Positive (Negative); Cocaine Screen Urine Negative (Negative); Methadone Screen Urine Negative (Negative); Opiate Screen Urine Negative (Negative); Phencyclidine Screen Urine Negative (Negative)
--- NOTE | 2023-09-18 12:22 | WPDANESEPP ---
Anes - Eval Pre Procedure Procedure: Labor Epidural Date/Time: 09/18/23 12:22 Surgeon: Kathy Preop Diagnosis: Labor Pain Pre Op Diagnosis: IOL Patient Data Age: 28 Gender: F Height: 1.63 m Weight: 121.5 kg Last Vital Signs Temp 36.5 C 09/18/23 11:30 Pulse 72 09/18/23 12:15 BP 127/92 H 09/18/23 12:15 Pulse Ox 99 09/18/23 12:19 Allergies Allergy/AdvReac Type Severity Reaction Status Date / Time nickel AdvReac Intermediate Swelling Verified 05/06/23 15:47 SUGAR AdvReac Mild Rash Uncoded 05/06/23 15:47 Home Medications Medication Instructions Recorded Confirmed Type amoxicillin 875 mg tablet 875 mg PO Q12H #20 tabs 05/06/23 Rx ondansetron 4 mg disintegrating 4 mg PO DAILY 3 days #3 tabs 05/06/23 Rx tablet Laboratory Tests 09/18/23 09/18/23 06:56 10:57 WBC 11.5 H K/mm3 (4.5-10.0) RBC 5.17 M/mm3 (4.2-5.4) Hgb 12.3 g/dL (12.0-15.0) Hct 41.4 % (37.0-47.0) MCV 80.1 fl (80-100) MCH 23.8 L pg (26-34) MCHC 29.7 L g/dl (32-36) RDW 18.2 H % (11.5-14.5) Plt Count 186 k/mm3 (150-375) MPV TNP Immature Gran % (Auto) 0.3 % (0-0.5) Neut % (Auto) 74.1 H % (45.5-73.1) Lymph % (Auto) 19.4 % (18.3-44.2) [place] % (Auto) 5.0 % (2.6-8.5) Eos % (Auto) 1.0 % (0-4.4) Baso % (Auto) 0.2 % (0.2-1.2) Lymph # (Auto) 2.22 K/mm3 (0.9-3.2) [place] # (Auto) 0.6 K/mm3 (0.1-0.6) Eos # (Auto) 0.1 K/mm3 (0-0.3) Baso # (Auto) 0.0 K/mm3 (0.0-0.1) Abs Immat Gran (auto) 0.03 K/mm3 (0.00-0.031) Absolute Neuts (auto) 8.5 H K/mm3 (1.3-6.7) Absolute Nucleated RBC 0.0 K/mm3 (0.0-0.012) Nucleated RBC % 0.0 % (0.0-0.2) Platelet Estimate Adequate (Adequate) % Immature Plt Fraction 21.8 H % (0.9-11.2) Anisocytosis 1+ (NORMAL) Schistocytes None seen (NORMAL) Sodium 137 mmol/L (137-145) Potassium 3.9 mmol/L (3.4-5.0) Chloride 108 H mmol/L (98-107) Carbon Dioxide 18 L mmol/L (22-30) Anion Gap 11 mmol/L (8-16) BUN 16 D mg/dL (7-17) Creatinine 0.60 L mg/dL (0.7-1.0) Estim Creat Clear Calc Not Reportable Estimated GFR > 60 (59 - ) Glucose 91 mg/dL (65-110) Uric Acid 6.4 mg/dL (2.5-7.5) Calcium 10.4 H mg/dL (8.4-10.2) Total Bilirubin 0.4 mg/dL (0.2-1.3) AST 26 U/L (14-36) ALT 17 U/L (6-35) Alkaline Phosphatase 167 H U/L (38-126) Total Protein 8.0 g/dL (6.3-8.2) Albumin 4.3 g/dL (3.5-5.1) Urine Opiates Screen Negative (Negative) Urine Methadone Screen Negative (Negative) Ur Barbiturates Screen Negative (Negative) Ur Phencyclidine Scrn Negative (Negative) Ur Amphetamine Screen Negative (Negative) U Benzodiazepines Scrn Negative (Negative) Urine Cocaine Screen Negative (Negative) U Cannabinoids Screen Positive A (Negative) RPR Pending Blood Type A Positive Antibody Screen Negative : gestational age (AKILAH 09/23/23, ) Patient hx anesthesia problems: none Family hx anesthesia problems: none Results Review: All pre-operative results and documents have been reviewed as part of the pre-operative evaluation. [facility] Past Medical History Medical History Anxiety Healthy female HTN in , chronic PTSD (post-traumatic stress disorder) Super obesity Surgical History Surgical History No history of previous surgery Family History Family History Mother Heart murmur Depression PTSD (post-traumatic stress disorder) Social History
[2023-09-18 15:12] LABS: Rapid Plasma Reagin Non-Reactive (NonReactive)
--- NOTE | 2023-09-18 15:44 | P.PCNOB_ITS ---
OB - Vaginal Delivery Note Procedure Delivery date: 09/18/23 Events: Gestational Hypertension Induction method: AROM Delivery augmentation: Pitocin Delivery monitor: External FHT and Internal Uterine Route of delivery: Episiotomy description: None Laceration Description: None Specimen: No Quantitative Blood Loss (ml): 161 Anesthesia type: Epidural Disposition: Floor Complications: No immediate complications [place] Baby Date of : 09/18/23 Time of : 15:33 Weeks of gestation at delivery: 39 Infant gender: Male presentation: vertex position: Right Occiput Anterior Placenta delivery description: Spontaneous Cord Vessel Description: 3 Vessels score one minute: 9 score five minutes: 9
--- NOTE | 2023-09-18 15:45 | PM.DS ---
DS: Admitting Diagnosis Discharge Date 09/19/2023 Admitting Diagnosis gestationalHypertension DS: Discharge Diagnosis Discharge Diagnosis (1) Gestational hypertension: Code(s): O13.9 - Gestational [-induced] hypertension without significant proteinuria, unspecified trimester Status: Acute (2) Term : Code(s): Z34.90 - Encounter for supervision of normal , unspecified, unspecified trimester Status: Acute DS: Summary Hospital Course Reason for hospitalization: patient was admitted on 09/18/2023 for induction of labor secondary to elevated blood pressures Hospital Course: patient underwent spontaneous vaginal delivery of a male infant which was unremarkable. Her hospital course unremarkable. Remained afebrile. She was up, voiding eating rate, ambulating, generally blood pressures remained stable Time Spent with Patient Time attestation: Total time spent providing and/or coordinating discharge services: DS: Data Data Completed and Pending Labs on day of discharge: Labs from last 24 hours 09/18/23 09/18/23 10:57 06:56 WBC 11.5 H RBC 5.17 Hgb 12.3 Hct 41.4 MCV 80.1 MCH 23.8 L MCHC 29.7 L RDW 18.2 H Plt Count 186 MPV TNP Immature Gran % (Auto) 0.3 Neut % (Auto) 74.1 H Lymph % (Auto) 19.4 [place] % (Auto) 5.0 Eos % (Auto) 1.0 Baso % (Auto) 0.2 Lymph # (Auto) 2.22 [place] # (Auto) 0.6 Eos # (Auto) 0.1 Baso # (Auto) 0.0 Abs Immat Gran (auto) 0.03 Absolute Neuts (auto) 8.5 H Absolute Nucleated RBC 0.0 Nucleated RBC % 0.0 Platelet Estimate Adequate % Immature Plt Fraction 21.8 H Anisocytosis 1+ Schistocytes None seen Sodium 137 Potassium 3.9 Chloride 108 H Carbon Dioxide 18 L Anion Gap 11 BUN 16 D Creatinine 0.60 L Estim Creat Clear Calc Not Reportable Estimated GFR > 60 Glucose 91 Uric Acid 6.4 Calcium 10.4 H Total Bilirubin 0.4 AST 26 ALT 17 Alkaline Phosphatase 167 H Total Protein 8.0 Albumin 4.3 Urine Opiates Screen Negative Urine Methadone Screen Negative Ur Barbiturates Screen Negative Ur Phencyclidine Scrn Negative Ur Amphetamine Screen Negative U Benzodiazepines Scrn Negative Urine Cocaine Screen Negative U Cannabinoids Screen Positive A RPR Non-reactive Blood Type A Positive Antibody Screen Negative Discharge Plan Discharge Attending physician on discharge: Aidan Schultz Discharging Clinician: Aidan Schultz Patient Disposition: Home, Self-Care Activity: may shower, no straining and pelvic rest Diet: heart healthy Wound Care Instructions: follow printed instructions Patient Instructions: Antibiotic Form Stand Alone Forms: General Discharge Information Follow-up/Referrals: Aidan Schultz MD [Physician] - Discharge Medications: Continued ondansetron 4 mg tablet,disintegrating 4 mg PO DAILY 3 Days Qty: 3 0RF amoxicillin 875 mg tablet 875 mg PO Q12H Qty: 20 0RF Date of admission: 09/18/23 06:27 Primary Care Provider: PHYSICIAN,BLOCK GREASER Admitting Provider: Aidan Schultz Attending physician on admission: Aidan Schultz Condition: Stable
[2023-09-18] MEDS: OXYTOCIN 30 UNITS/NS 500 ML 30 UNITS/500 ML BAG 125 UNITS IV CONT (16:10)
[2023-09-18] MEDS: BENZOCAINE 20% AER SPR (*SP) 56 GM CAN 1 SPRAY TOPICAL (17:59)
[2023-09-18] MEDS: WITCH HAZEL 40 PADS 1 PAD TOPICAL (17:59)
--- NOTE | 2023-09-18 18:13 | PC.NURSE ---
Patient transferred to post room # [id number] (W/C). Support person present. Oriented to unit, room, information board, rooming in, admission packet and security measures. Patient verbalizes understanding.
[2023-09-19 00:50] VITALS: BP 118/81; PULSE 70; RESP 20; TEMP 36.9; O2SAT 96
[2023-09-19 05:02] VITALS: BP 119/74; PULSE 66
[2023-09-19 05:42] LABS: Hematocrit 34.4 % (37.0-47.0); Hemoglobin 10.4 g/dL (12.0-15.0)
--- NOTE | 2023-09-19 06:02 | P.PNOB_ITS ---
OB - PN: Subj Subjective Date/time seen: 09/19/23 06:02 Patient comments: no complaints and pain well controlled baby status: doing well and nursing well OB - PN: Obj Data Labs 09/19/23 05:11 09/18/23 06:56 Labs: Laboratory Results - last 24 hr 09/18/23 09/18/23 09/19/23 06:56 10:57 05:11 WBC 11.5 H RBC 5.17 Hgb 12.3 10.4 L Hct 41.4 34.4 L MCV 80.1 MCH 23.8 L MCHC 29.7 L RDW 18.2 H Plt Count 186 MPV TNP Immature Gran % (Auto) 0.3 Neut % (Auto) 74.1 H Lymph % (Auto) 19.4 [place] % (Auto) 5.0 Eos % (Auto) 1.0 Baso % (Auto) 0.2 Lymph # (Auto) 2.22 [place] # (Auto) 0.6 Eos # (Auto) 0.1 Baso # (Auto) 0.0 Abs Immat Gran (auto) 0.03 Absolute Neuts (auto) 8.5 H Absolute Nucleated RBC 0.0 Nucleated RBC % 0.0 Platelet Estimate Adequate % Immature Plt Fraction 21.8 H Anisocytosis 1+ Schistocytes None seen Sodium 137 Potassium 3.9 Chloride 108 H Carbon Dioxide 18 L Anion Gap 11 BUN 16 D Creatinine 0.60 L Estim Creat Clear Calc Not Reportable Estimated GFR > 60 Glucose 91 Uric Acid 6.4 Calcium 10.4 H Total Bilirubin 0.4 AST 26 ALT 17 Alkaline Phosphatase 167 H Total Protein 8.0 Albumin 4.3 Urine Opiates Screen Negative Urine Methadone Screen Negative Ur Barbiturates Screen Negative Ur Phencyclidine Scrn Negative Ur Amphetamine Screen Negative U Benzodiazepines Scrn Negative Urine Cocaine Screen Negative U Cannabinoids Screen Positive A RPR Non-reactive Blood Type A Positive Antibody Screen Negative OB - PN A/P Plan day: 1 Plan: routine care, discharge home and follow up 6 weeks Time Spent With Patient Time: Total time spent is greater than 50% in coordination of care (as documented) at patient's floor/unit and/or counseling patient: Time with patient: less than 15 minutes Exam Const: General: cooperative, healthy appearing and comfortable Orientation/consciousness: oriented to person, oriented to place and oriented to time Resp: Effort & Inspection: normal respiratory effort Cardio: Rate: regular rate Rhythm: regular rhythm Heart sounds: S1 normal heart sound present and S2 normal heart sound present GI: Inspection: normal to inspection
[2023-09-19 07:55] VITALS: BP 128/83; PULSE 56; RESP 18; TEMP 36.3; O2SAT 99
[2023-09-19] MEDS: MULTIVIT/MIN/PREN/FOL AC/IRON TABLET 1 TAB PO (09:11)
[2023-09-19] MEDS: DOCUSATE SODIUM 100 MG CAPSULE PO (09:57)
--- NOTE | 2023-09-19 10:42 | PC.NURSE ---
[id number] Mother is demonstrating her abilty to independently latch with appropriate positioning, alignment, to the right breast. She denies any nipple discomfort and is responsively . Infant is currently meeting outcomes for weight, output, jaundice, blood sugar and feeding frequencies of 8-12 times in 24 hours. Signs of swallowing visualized with suck swallow ratios of 3:1 or less. self detached and there was no negative misshaping of the nipple just elongated. Reinforced understanding of milk production, transition of milk, signs of adequate intake, transition of stool, prevention/relief of engorgement, plugged ducts, mastitis, responsive watching for feeding cues, the different methods of stimulating infant to breastfeed 1-3 hours after the start of the last feeding, community resources, and when to call a provider using the resource of the feeding sheet along with the mom and baby guide. Mother declines any additional assistance or education at this time. Mother is encouraged to call for assistance if her infant doesn?t latch, pain with latching, questions or concerns.
--- NOTE | 2023-09-19 11:25 | PC.NURSE ---
[id number] Mother requested a consult and shared that after the last feeding she did notice that her nipples were misshaped. Infant is sleeping in mother's arms. Demonstrated techniques to wake infant to breastfeed. has a large meconium stool diaper and while changing that, voided after the circumcision done earlier today. is awake and demonstrating feeding cues. Once infant was placed [id number] instincts were visualized showing infant was interested in going to the breast to eat. Education given to mother to use a scissor hold to assist getting more breast into the 's mouth. Infant had a big, wide, open gape 130-150 degrees and demonstrated a suck/swallow ratios of 3:1 or less. Mother encouraged to allow for the pauses, then encourage active when needed to have an effective session with swallows. 's tongue has a tight lower frenulum, however; mother's breast are soft and the V hold is helpful on achieving an appropriate latch for swallowing. Mother instructed to look for misshaping of the nipple after the session and mother denies pain. Infant has a rounded cheek line. Mother states she is confident to continue effectively her infant at home, when to call for assistance, denies any additional assistance or education at this time. Reinforced understanding of milk production, transition of milk, signs of adequate intake, transition of stool, prevention/relief of engorgement, plugged ducts, mastitis, responsive watching for feeding cues, the different methods of stimulating infant to breastfeed 1-3 hours after the start of the last feeding, community resources, and when to call a provider using the resource of the feeding sheet along with the mom and baby guide. Mother voiced understanding of the education shared. Reported to the Primary RN.
[2023-09-19 11:58] VITALS: BP 127/86; PULSE 55; RESP 16; TEMP 36.4; O2SAT 100
--- NOTE | 2023-09-19 12:00 | PC.NURSE ---
Patient instructed on viewing the discharge video Mother & Baby Care, The First Two Weeks . Patient was given the opportunity and encouraged to ask questions. Patient verbalized understanding of information shared and has been given the mother/baby guide for home reference.
[2023-09-19] MEDS: TETANUS,DIPHTHERIA,AC PERTUSSIS ADULT (0.5 ML) BOOSTRIX IM (16:35)
--- NOTE | 2023-09-19 17:30 | PC.NURSE ---
Shortly before discharge, patient called out and said that she dropped the small table in the patient room on her toe. Her toe is bruised and she is not able to bend it. Patient declines further intervention. Tape given and her partner taped her toes together. Offered several times to call the doctor for orders but patient declines. Doctor Gustavo Jorgensen notified and no further orders.
[2023-09-20 15:11] VITALS: BP 128/73; PULSE 74; RESP 18; TEMP 36.7; O2SAT 99
== END 2023-09-19 17:30 | disposition home or self-care (01) | DRG 560 ==
LOC: ANHLDR 15:47 → ANHOB2 18:28
PROVIDERS: Admitting Provider Obstetrics & Gynecology; Visit Provider Obstetrics & Gynecology
DX: O13.4 Gestational [pregnancy-induced] hypertension without significant proteinuria, complicating childbirth (principal); Z37.0 Single live birth; Z3A.39 39 weeks gestation of pregnancy
CPT/HCPCS: 36415; 80053; 80307; 84550; 85014; 85018; 85025; 85055; 86592; 86850; 86900; 86901; 90715; A9270; J2405; J2590; J2795; J7120